=== PATIENT | male | born 1965 | race Caucasian/White ===

== ENCOUNTER 2016-10-07 11:30 | Emergency (ER) | payer MEDICAID, OTHER ==
[~2016-10-07] VITALS: Ht 157.5 cm; Wt 45.0 kg
[2016-10-07 11:49] VITALS: BP 118/85
--- NOTE | 2016-10-07 11:57 | NUR ---
PT AMBULATED TO BED 5 AT THIS TIME.
--- NOTE | 2016-10-07 11:59 | NUR ---
PATIENT PRESENTS TO ED WITH lle pain x 2 days--from hip to toes . PT STATES . DENIES N/V/D; SKIN IS PINK/WARM/DRY; AAOX4 WITH EVEN AND STEADY GAIT; LUNGS CLEAR BL; HR EVEN AND REGULAR; PT DENIES ANY FEVER, CP, SOB, OR COUGH AT THIS TIME; PATIENT STATES PAIN OF 9/10 AT THIS TIME; VSS; PATIENT POSITIONED FOR COMFORT; HOB ELEVATED; BEDRAILS UP X2; BED DOWN. ER MD MADE AWARE OF PT STATUS.
--- NOTE | 2016-10-07 12:03 | NUR ---
ER MD DR. SILVA EVALUATING PT AT BEDSIDE.
[2016-10-07] MEDS ORDERED: KETOROLAC 30 MG/ML VIAL IM ONE (12:10)
--- NOTE | 2016-10-07 12:15 | NUR ---
PT STS PAIN LLE 9/10. ADMINISTERED MED ORDER.PT TOLERATED PROCEDURE WELL.
--- NOTE | 2016-10-07 12:20 | NUR ---
X RAY AT BEDSIDE.
--- NOTE | 2016-10-07 12:30 | NUR ---
Patient appears to be resting comfortably in bed. Vital Signs within normal limits. Respirations even and unlabored.WILL CONTINUE TO MONITOR. PT STS PAIN5/10
--- NOTE | 2016-10-07 12:40 | NUR ---
PT STS PAIN3/10 AT THIS TIME.
[2016-10-07 12:48] VITALS: BP 117/78
--- NOTE | 2016-10-07 12:48 | NUR ---
Patient discharged with v/s stable. Written and verbal after care instructions given and explained. Patient alert, oriented and verbalized understanding of instructions. Ambulatory with steady gait. All questions addressed prior to discharge. ID band removed. Patient advised to follow up with PMD. Rx of TYLENOL WITH CODEINE NO3, NAPROSYN & COLACE given. Patient educated on indication of medication including possible reaction and side effects. Opportunity to ask questions provided and answered.
== END 2016-10-07 12:48 | disposition home or self-care (01) ==
LOC: MED 11:30
DX: M54.42 Lumbago with sciatica, left side (principal); M25.552 Pain in left hip; F31.9 Bipolar disorder, unspecified; M19.90 Unspecified osteoarthritis, unspecified site; F17.210 Nicotine dependence, cigarettes, uncomplicated
CPT/HCPCS: 73502; 96372; 99284; J1885; Q0092

== ENCOUNTER 2016-10-09 07:25 | Emergency (ER) | payer OTHER ==
[~2016-10-09] VITALS: Ht 154.9 cm; Wt 45.4 kg
--- NOTE | 2016-10-09 07:33 | NUR ---
PT AMBULATED TO BED 5.
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
[2016-10-09 07:36] VITALS: BP 146/87
[2016-10-09] MEDS ORDERED: [UNRECOGNIZED DRUG - CODE] PO (07:39)
[2016-10-09] MEDS ORDERED: NAPR500T1 PO (07:39)
--- NOTE | 2016-10-09 07:48 | NUR ---
Dr. Turner evaluating patient at bedside.
[2016-10-09] MEDS: KETOROLAC 60 MG/2 ML VIAL IM ONE (08:27)
[2016-10-09 08:51] VITALS: BP 138/88
--- NOTE | 2016-10-09 08:51 | NUR ---
Patient discharged with v/s stable. Written and verbal after care instructions given and explained. Patient alert, oriented and verbalized understanding of instructions. Ambulatory with steady gait. All questions addressed prior to discharge. ID band removed. Patient advised to follow up with PMD. Rx of TYLENOL WITH CODEINE NO. 4 TAB given. Patient educated on indication of medication including possible reaction and side effects. Opportunity to ask questions provided and answered.
== END 2016-10-09 08:51 | disposition home or self-care (01) ==
LOC: MED 07:25
DX: M25.552 Pain in left hip (principal); R03.0 Elevated blood-pressure reading, without diagnosis of hypertension; F32.9 Major depressive disorder, single episode, unspecified; Z79.899 Other long term (current) drug therapy; Z71.6 Tobacco abuse counseling
CPT/HCPCS: 96372; 99283; J1885